=== PATIENT | female | born 2000 | race Caucasian/White ===

== ENCOUNTER 2019-02-20 02:38 | Emergency (ER) | payer OTHER ==
[2019-02-20 03:00] VITALS: BP 113/77; PULSE 76; TEMP 98.2; BMI 33.4
--- NOTE | 2019-02-20 03:02 | PDOC ---
History of Present Illness - General Chief Complaint: Wound Stated Complaint: PAIN,WOUND,S/P C/S Time Seen by Provider: 02/20/19 02:53 History Source: Patient, Family Exam Limitations: No Limitations - History of Present Illness Initial Comments: 02/20/19 03:11 18 YOF with no medical history presenting with lower abdominal incisional scar pain, redness, malodor and discharge x 3 days. no f/c. recent c section with Dr Oneil at [place] about 1 week ago, uncomplicated currently. due for forrest to be removed in 1 day admits to urinary frequency and burning this morning. normal bleeding s/p c section, no urgency, no flank or abdominal pain, no rash. taking tylenol/motrin as needed for pain. 02/20/19 03:13 Past History - Past Medical History Allergies/Adverse Reactions: Allergies Allergy/AdvReac Type Severity Reaction Status Date / Time No Known Allergies Allergy Verified 02/20/19 03:00 Home Medications: Ambulatory Orders EPINEPHrine (EPI-PEN 0.3MG) [Epipen 0.3MG] 0.3 mg IM PRN PRN #0 syr 03/12/12 No Home Medications 0 dose .ROUTE UTDICT 03/12/12 predniSONE [Deltasone -] 20 mg PO BID #8 tablet 03/12/12 Cephalexin Monohydrate [Keflex -] 500 mg PO Q8H 7 Days #20 capsule 02/20/19 COPD: No - Immunization History Immunization Up to Date: Yes - Suicide/Smoking/Psychosocial Hx Smoking Status: No Smoking History: Never smoked Have you smoked in the past 12 months: No Number of Cigarettes Smoked Daily: 0 Information on smoking cessation initiated: No Hx Alcohol Use: No Drug/Substance Use Hx: No Review of Systems - Review of Systems Able to Perform ROS?: Yes Comments:: 02/20/19 03:14 Constitutional: no fevers or chills. No weakness HEENT: no headache or dizziness. No congestion. CVS: no cp or syncope. Resp: no sob. No cough. Gastrointestinal: no abdominal pain, nausea or vomiting. no diarrhea or constipation. Genitourinary: +urinary frequency and dysuria. no hematuria, no vaginal bleeding. MUSCULOSKELETAL: No joint pain and swelling. No neck or back pain. SKIN: +incisional scar, +redness, +discharge Hematologic: no easy bruising/bleeding. , +malodor. NEUROLOGIC: No headache, dizziness, LOC or altered mental status. No weakness, numbness or tingling. Psych: no anxiety or depression Allergic/Immunologic: no allergies All other systems reviewed and negative, or as documented in HPI. *Physical Exam - Vital Signs Last Vital Signs Temp Pulse Resp BP Pulse Ox 98.2 F 76 16 113/77 100 02/20/19 02:40 02/20/19 02:40 02/20/19 02:40 02/20/19 02:40 02/20/19 02:40 - Physical Exam Comments: 02/20/19 03:15 General: Well appearing, awake and alert, NAD. HEENT: NCAT, PERRL, EOMI, clear conjunctiva, anicteric, moist mucus membranes, clear oropharynx, no oral lesions.. Neck: neck supple, FROM Resp: CTAB, normal and even respirations, no respiratory distress CVS: RRR, no murmurs, 2+ peripheral pulses throughout, no peripheral edema Abdomen: soft, NTND, no rebound or guarding. No CVAT. +horizontal lower abdominal surgical incisional scar, overlying forrest, some surrounding very mild erythema, no fluctuance, no discharge, minimally tender. no crepitus. Back: nontender, normal inspection and ROM MSK: no edema, ZAPIEN x4, ROM intact. No clubbing or cyanosis. normal bulk and tone. Extremities: no calf tenderness Neuro: alert, oriented appropriately Psych: Calm and cooperative Skin: warm and well perfused, cap refill <2 sec, normal color Medical Decision Making - Medical Decision Making 02/20/19 03:16 hpi as documented VS reviewed, wnl. Vital Signs Temp Pulse Resp BP Pulse Ox 98.2 F 76 16 113/77 100 02/20/19 02:40 02/20/19 02:40 02/20/19 02:40 02/20/19 02:40 02/20/19 02:40 ddx cellulitis, abscess, incisional scar pain, wound infection doubt nec fasciitis abdomen soft nontender, no peritoneal s/s. 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 pt made aware of impression and plan, return precautions, abx trial and should improve in 48-72 hours 02/20/19 04:02 *DC/Admit/Observation/Transfer Diagnosis at time of Disposition: Incisional pain Cellulitis Qualifiers: Site of cellulitis: trunk Site of cellulitis of trunk: abdominal wall Qualified Code(s): L03.311 - Cellulitis of abdominal wall Urinary tract infection Qualifiers: Urinary tract infection type: site unspecified Hematuria presence: with hematuria Qualified Code(s): N39.0 - Urinary tract infection, site not specified ; R31.9 - Hematuria, unspecified - Discharge Dispostion Disposition: HOME Condition at time of disposition: Good Decision to Admit order: No - Prescriptions Prescriptions: Cephalexin Monohydrate [Keflex -] 500 mg PO Q8H 7 Days #20 capsule - Referrals Referrals: Adalgisa Chamberlain [Primary Care Provider] - Cydney Card MD [Staff Physician] - Khloe Hartley MD [Staff Physician] - - Patient Instructions Printed Discharge Instructions: Scar Tissue (Alternative Therapy), DI for Wound Infection Additional Instructions: 1) Please follow-up with your manager agency Dr Floyd in [place] in the next 1 day as scheduled. Please call tomorrow for for any urgent issues. at that time you will get your forrest removed as well as your wound reevaluated you may also have a urinary tract infection, the antibiotics prescribed should cover for this as well. follow up on urine culture. 2) If you have any worsening of symptoms or any other concerns please return to the ED immediately. Return if worsening symptoms including fevers, chills, worsening redness/purulence/pain, swelling, headache, vomiting, visual or hearing disturbances, abdominal pain, chest pain, shortness of breath, syncope, dehydration, inability to take things by mouth/vomiting, altered mental status, or worsening concerning symptoms. 3) Please continue taking your home medications as directed. your medications on discharge include keflex three times a day x 7 days . side effects may include upset stomach, abdominal pain, vomiting, or diarrhea. do not drink alcohol with your medications. you may take tylenol for pain control as needed, 650mg every 6 hours for the incisional scar pain. also place warm compresses/warm towel to the area Stay well hydrated and rest adequately. Make an appointment. If you cannot follow-up with your primary care doctor please return to the ED - Post Discharge Activity
[2019-02-20] MEDS ORDERED: CEPHALEXIN MONOHYDRATE 500 MG CAPSULE (UD) PO ONE (03:04)
[2019-02-20] MEDS ORDERED: CEPHALEXIN MONOHYDRATE 500 MG CAPSULE (UD) ONE (03:12)
[2019-02-20 03:57] LABS: EPI CELLS 12.2 /HPF (0-5/HPF); HYALINE CASTS 32 /lpf (0-8); PH,URINE 5.5 (5.0-8.0); URINE APPEARANCE CLEAR; URINE BACTERIA 7.1 /hpf (NEGATIVE); URINE BILIRUBIN NEGATIVE (NEGATIVE); URINE COLOR YELLOW; URINE GLUCOSE (UA) NEGATIVE (NEGATIVE); URINE KETONE NEGATIVE (NEGATIVE); URINE LEUK ESTERASE 2+ (NEGATIVE); URINE NITRITE NEGATIVE (NEGATIVE); URINE PROTEIN TRACE (NEGATIVE); URINE RBC 78 /hpf (0-4); URINE UROBILINOGEN 0.2 mg/dL (0.2-1.0); URINE WBC 44 /hpf (0-5)
== END 2019-02-20 05:22 | disposition home or self-care (01) ==
LOC: JER 02:38
DX: O90.89 Other complications of the puerperium, not elsewhere classified (principal); O86.01 Infection of obstetric surgical wound, superficial incisional site; R35.0 Frequency of micturition; O86.29 Other urinary tract infection following delivery; R31.9 Hematuria, unspecified
CPT/HCPCS: 81003; 87086; 99282-25